=== PATIENT | male | born 1960 | race Two or more races ===

== ENCOUNTER 2016-12-05 14:35 | Outpatient (CLI) | payer BC | END 2016-12-05 23:59 | disposition home or self-care (01) | LOC: WOU 14:35 | PROVIDERS: ATTEND Surgery | DX: Z48.815 Encounter for surgical aftercare following surgery on the digestive system (principal); I96 Gangrene, not elsewhere classified; K35.2 Acute appendicitis with generalized peritonitis; E66.9 Obesity, unspecified; Z68.29 Body mass index [BMI] 29.0-29.9, adult | CPT/HCPCS: 11042; 11045; 87070; 87075; 87077; A6253 ×2; A6402 ==

== ENCOUNTER 2016-12-12 14:20 | Outpatient (CLI) | payer BC | END 2016-12-12 23:59 | disposition home or self-care (01) | LOC: WOU 14:20 | PROVIDERS: ATTEND Surgery | DX: Z48.815 Encounter for surgical aftercare following surgery on the digestive system (principal); I96 Gangrene, not elsewhere classified; E66.9 Obesity, unspecified; Z68.29 Body mass index [BMI] 29.0-29.9, adult | CPT/HCPCS: 11042; 11045; 97605; A6402 ==

== ENCOUNTER 2016-12-27 15:20 | Outpatient (CLI) | payer BC | END 2016-12-27 23:59 | disposition home or self-care (01) | DX: T81.89XA Other complications of procedures, not elsewhere classified, initial encounter (principal); R10.9 Unspecified abdominal pain; E66.9 Obesity, unspecified; Z68.29 Body mass index [BMI] 29.0-29.9, adult | CPT/HCPCS: 11042; 97605; A6402 ==